=== PATIENT | male | born 1955 | race Caucasian/White ===

== ENCOUNTER 2024-01-24 12:47 | Inpatient (IN) | payer OTHER ==
[~2024-01-24] VITALS: Ht 170.2 cm; Wt 77.6 kg
--- NOTE | 2024-01-24 13:37 | NUR ---
PACIENTE ALERTA Y ORIENTADO X3 REFIERE QUE ENEL MARIA INES DE HOY COMENZO CON VOMITOS CONTINUOS X12, PACIENTE VERBALIZA QUE ES CONSECUENCIA DE RITA CONDICION PRE EXISTENTE. PACIENTE VERBALIZA QUE TIENE EMILY DOLOR EN EL ABDOMEN INFERIOR BILATERAL.
[2024-01-24] MEDS ORDERED: FAMOTIDINE/PF 20 MG in 0.9 % SODIUM CHLORIDE 8 ML IV PUSH STA (13:55)
[2024-01-24] MEDS ORDERED: ONDANSETRON HCL 2 MG/ML VIAL IV ONE (14:00)
[2024-01-24] MEDS ORDERED: 0.9 % SODIUM CHLORIDE 1,000 ML IV SCH (14:00)
[2024-01-24] MEDS ORDERED: MORPHINE SULFATE 4 MG/ML VIAL IV ONE (14:00)
--- NOTE | 2024-01-24 14:22 | NUR ---
PTE ALERTA Y ORIENTADO X3. SE EDUCA AL MISMO SOBRE TX MEDICO, REFIERE ENTENDER. SE SHYANNE MUESTRAS DE LAB BAJO MEDIDAS ASEPTICAS Y SE ADMINISTRAN MEDICAMENTOS BRE ORDEN MEDICA, EL MISMO NO PRESESENTA REACCION ADVERSA.SE MANTIENE A PTE BAJO OBSERVACION.
[2024-01-24 14:29] LABS: HEMATOCRIT 43.3 % (39.0-48.0); MEAN CORPUSCULAR HEMOGLOBIN 30.9 pg (27.00-32.0); MEAN CORPUSCULAR HGB CONC 34.7 g/dl (32.0-36.0); PLATELET COUNT 249 K/uL (150-450); RED BLOOD COUNT 4.86 M/uL (4.00-6.00); RED CELL DISTRIBUTION WIDTH 13.6 % (11.5-14.5)
[2024-01-24 14:53] LABS: ALBUMIN 4.5 gm/dL (3.4-5.0); BILIRUBIN TOTAL 1.16 mg/dL (0.3-1.2); CALCIUM 9.8 mg/dL (8.5-10.1); CREATININE SERUM 0.87 mg/dL (0.70-1.30); GLOBULINA 4.1 G/DL (2.4-3.5); POTASSIUM 3.58 mEq/L (3.5-5.1); TOTAL PROTEIN 8.6 gm/dL (6.4-8.2)
[2024-01-24] MEDS ORDERED: PIPERACILLIN/TAZOBACTAM SODIUM 3.375 GM in 0.9 % SODIUM CHLORIDE 100 ML IV SCH (14:56)
[2024-01-24] MEDS ORDERED: METOCLOPRAMIDE HCL 10 MG in 0.9 % SODIUM CHLORIDE 50 ML IV ONE (15:00)
--- NOTE | 2024-01-24 15:40 | NUR ---
PTE ALERTA Y ORIENTADA X 3 ESFERAS,SE LE ADMINISTRA MEDICAMENTO BRE ORDEN MEDICA.
[2024-01-24] MEDS ORDERED: HYOSCYAMINE SULFATE 0.125 MG TAB.SUBL SL STA (19:02)
[2024-01-24] MEDS ORDERED: MEPERIDINE HCL/PF 50 MG/ML VIAL IM STA (19:03)
[2024-01-24] MEDS ORDERED: PROMETHAZINE HCL 50 MG/ML AMPUL IM STA (19:03)
--- NOTE | 2024-01-24 19:21 | NUR ---
SE ORIENTQA PTE SOBRE INSERCION DE NGT EL CUAL SE REALIZA BAJO MEDIDAS ASEPTICAS EN MAXIMILIAN RT PRESENTANDO EGRESO COLOR NOHEMI.SE LE ADMINISTRA MEDICAMENTO BRE ORDEN MEDICA.
--- NOTE | 2024-01-24 23:01 | NUR ---
SE RECIBE PACIENTE DE TURNO ANTERIOR ALERTA Y ORIENTADO X3, UBICADO EN CHRISTINA. SE OBSERVA CON BUEN PATRON REPSIRATORIO Y PIEL TIBIA AL TACTO. NGT TO LIS EN MAXIMILIAN DERECHO PATENTE. CANALIZACION PATENE,JEFF DE EDEMA O ERITEMA. RECIBIENDO 0.9 NSS @150ML/HR. PENDIENTE A REALIZAR CT
[2024-01-25] MEDS ORDERED: MORPHINE SULFATE 4 MG/ML VIAL IV STA (00:05)
[2024-01-25 00:59] LABS: AMYLASE 25 U/L (25-115); INR 1.12; LIPASE 30 U/L (13-75); PARTIAL THROMBOPLASTIN TIME 26.2 SECONDS (22.0-34.0); PROTHROMBIN TIME 11.7 SECONDS (9.0-11.5)
--- NOTE | 2024-01-25 01:44 | NUR ---
PTE REHUSO KAY SE ORIENTA SOBRE LA IMPORTANCIA DEL MISMO MARTINEZ PTE CONTINUA REHUSANDO.
--- NOTE | 2024-01-25 01:59 | NUR ---
SE LE ORIENTA A PACIENTE SOBRE LA ORDEN MEDICA DEL KAY, PACIENTE VERBALIZA QUE REHUSA QUE SE LE INSERTE EL KAY. SE LE ORIENTA A PACIENTE DE LA IMPORTANCIA, SE LE NOTIFICA A .
[2024-01-25] MEDS ORDERED: PROMETHAZINE HCL 50 MG/ML AMPUL IM STA (02:04)
[2024-01-25] MEDS ORDERED: FAMOTIDINE/PF 20 MG/2 ML VIAL IV PUSH STA (02:04)
[2024-01-25 02:55] LABS: PH,URINE 5.5 (5.0-8.0); URINE APPEARANCE Clear; URINE BILIRRUBIN Negative (NEGATIVE); URINE BLOOD Trace; URINE COLOR Yellow; URINE GLUCOSE Negative (NEGATIVE); URINE LEUKOCYTE Negative; URINE NITRATE Negative; URINE PROTEIN Trace (NEGATIVE)
[2024-01-25 02:59] LABS: URINE BACTERIA 15.1 uL (0.0-1933); URINE EPITHELIAL CELLS 1.6 uL (0.0-38.8); URINE RBC 13.7 uL (0.0-20.8); URINE WBC 9.8 uL (0.0-23.2)
--- NOTE | 2024-01-25 07:52 | NUR ---
SE RECIBE PACIENTE MASCULINO ALERTA Y ORIENTADO X 3 ESFERAS EN CAMA CON BARANDAS ELEVADAS POR SEGURIDAD. PRESENTANDO BUEN PATRON RESPIRATORIO. RECIBIENDO IV'S 0.9NSS BAJANDO A 200ML/HR POR VENOPUNCION EN BRAZO DERECHO AREA JEFF DE EDEMA Y ERITEMA. PENDIENTE QUE PACIENTE TOLERA ALIMENTACION. SE MANTIENE EN OBSERVACION.
[2024-01-25] MEDS ORDERED: MAG HYDROX/ALUMINUM HYD/SIMETH 30 ML BLIST.PACK PO ONE (09:30)
[2024-01-25] MEDS ORDERED: MORPHINE SULFATE 4 MG/ML CARTRIDGE IV ONE (09:30)
[2024-01-25] MEDS ORDERED: FAMOTIDINE/PF 20 MG/2 ML VIAL IV SCH (13:17)
[2024-01-25] MEDS ORDERED: MORPHINE SULFATE 4 MG/ML VIAL IV SCH (13:18)
[2024-01-25] MEDS ORDERED: ENALAPRILAT DIHYDRATE 1.25 MG/ML VIAL IV PRN (13:30)
[2024-01-25] MEDS ORDERED: 0.9 % SODIUM CHLORIDE 1,000 ML IV SCH (13:30)
[2024-01-25] MEDS ORDERED: ONDANSETRON HCL 4 MG in 0.9 % SODIUM CHLORIDE 50 ML IV PRN (13:30)
[2024-01-25 14:57] LABS: INR 1.07; PARTIAL THROMBOPLASTIN TIME 29.9 SECONDS (22.0-34.0); PROTHROMBIN TIME 11.2 SECONDS (9.0-11.5)
[2024-01-25 15:07] LABS: PH,URINE 5.5 (5.0-8.0); URINE APPEARANCE Clear; URINE BILIRRUBIN Negative (NEGATIVE); URINE BLOOD Trace; URINE COLOR Yellow; URINE GLUCOSE Negative (NEGATIVE); URINE LEUKOCYTE Negative; URINE NITRATE Negative; URINE PROTEIN Negative (NEGATIVE); URINE UROBILINOGEN 0.2 E.U./dl
[2024-01-25 15:13] LABS: URINE BACTERIA 6.2 uL (0.0-1933); URINE EPITHELIAL CELLS 2.3 uL (0.0-38.8); URINE RBC 12.5 uL (0.0-20.8)
[2024-01-25] MEDS ORDERED: MORPHINE SULFATE 4 MG/ML CARTRIDGE IV SCH (21:00)
[2024-01-26] MEDS ORDERED: MORPHINE SULFATE 4 MG/ML VIAL IV STA (01:25)
[2024-01-26] MEDS ORDERED: PANTOPRAZOLE SODIUM 40 MG/VIAL VIAL IV SCH (01:30)
[2024-01-26 14:06] LABS: ABG PH 7.151 (7.35-7.45)
[2024-01-26 14:07] LABS: ABG PO2 30.8 mmHg (80-100); ABG pCO2 69.7 mmHg (35-45); BASE EXCESS -6.5 mmol/l; BICARBONATE 23.8 mmol/l (23-25); SaO2 39.1 %; Tco2 25.9 mmol/l
[2024-01-26 14:08] LABS: allen test SATISFACTORY; o2 21 %; puncture site RADIAL RIGHT
== END 2024-01-26 16:42 | disposition left against medical advice (07) | DRG 392 ==
LOC: ER 12:48 → SEC-K 01-25 13:28 → MEDI 01-25 13:28
PROVIDERS: General Practice; ADMIT Internal Medicine; ATTEND Internal Medicine
PROC: 4A033R1 Measurement of Arterial Saturation, Peripheral, Percutaneous Approach (ICD-10-PCS; principal; 2024-01-25)
DX: K90.49 Malabsorption due to intolerance, not elsewhere classified (principal); R11.2 Nausea with vomiting, unspecified; Z53.29 Procedure and treatment not carried out because of patient's decision for other reasons; R10.9 Unspecified abdominal pain; Z20.822 Contact with and (suspected) exposure to COVID-19